=== PATIENT | male | born 1965 | race Caucasian/White ===

== ENCOUNTER 2019-01-13 11:12 | Emergency (ER) | payer OTHER ==
[~2019-01-13] VITALS: Ht 172.7 cm; Wt 108.9 kg
[~2019-01-13 11:12] MED LIST: LEVAQUIN 500 M500 M2 PO; MEDROL DOSPAK21 TA1 PO; TESSALON PERLE100 MG PO; VENTOLIN HFA 1818 GM INH
[2019-01-13 13:31] LABS: ABSOLUTE NEUTROPHILS 5.4 thou/uL (1.4-8.2); BASOPHILS 0.3 % (0.0-2.0); EOSINOPHILS 2.4 % (0.0-3.0); HEMATOCRIT 47.8 % (42.0-52.0); HEMOGLOBIN 16.6 gm/dL (14.0-18.0); LYMPHOCYTES 16.8 % (24.0-44.0); MCHC 34.6 g/dL (28.0-37.0); MCV 98.4 fL (80.0-100.0); PLATELET COUNT 227 thou/uL (150-400); POLYS 72.5 % (36.0-66.0); RBC 4.86 mil/uL (4.50-6.00); RDW 13.1 % (10.5-14.5); WBC 7.5 thou/uL (4.0-11.0)
[2019-01-13 13:40] LABS: CALCIUM 9.1 mg/dL (8.5-10.1); CREATININE 0.9 mg/dL (0.7-1.3); POTASSIUM 4.4 mmol/L (3.5-5.1)
[2019-01-13 13:44] LABS: ALBUMIN 3.7 g/dL (3.4-5.0); TOTAL BILIRUBIN 0.4 mg/dL (<0.1-1.0); TOTAL PROTEIN 7.2 g/dL (6.4-8.2)
[2019-01-13 15:14] LABS: URINE BILIRUBIN NEGATIVE (Negative); URINE BLOOD NEGATIVE (Negative); URINE CLARITY CLEAR; URINE COLOR YELLOW; URINE GLUCOSE-RANDOM* NEGATIVE (Negative); URINE KETONES NEGATIVE (Negative); URINE LEUKOCYTES-REFLEX NEGATIVE (Negative); URINE NITRITE-REFLEX NEGATIVE (Negative); URINE PROTEIN (DIPSTICK) NEGATIVE (Negative); URINE SPECIFIC GRAVITY <= 1.005 (1.005-1.035); URINE UROBILINOGEN 0.2 E.U./dl (0.2-1.0)
[2019-01-13] MEDS ORDERED: ZANTAC 150MG T150 MG PO (15:20)
[2019-01-13] MEDS ORDERED: MOBIC7.5 MG PO (15:20)
[2019-01-13 15:26] VITALS: BP 121/79
== END 2019-01-13 15:34 | disposition home or self-care (01) ==
LOC: ER 11:12
PROVIDERS: Nurse Practitioner Family
DX: R10.11 Right upper quadrant pain (principal); K76.0 Fatty (change of) liver, not elsewhere classified; Z87.891 Personal history of nicotine dependence; Z88.8 Allergy status to other drugs, medicaments and biological substances

== ENCOUNTER 2019-01-17 23:10 | Emergency (ER) | payer OTHER ==
[~2019-01-17] VITALS: Ht 172.7 cm; Wt 108.9 kg
[~2019-01-17 23:10] MED LIST changes: +MOBIC7.5 MG PO; +ZANTAC 150MG T150 MG PO
[2019-01-17] MEDS ORDERED: DOXYCYCLINE 10100 MG PO (23:34)
[2019-01-17] MEDS ORDERED: FAMCYCLOVIR 50500 M1 PO (23:35)
[2019-01-18 00:37] VITALS: BP 120/79
== END 2019-01-18 00:43 | disposition home or self-care (01) ==
LOC: ER 23:10
DX: B02.22 Postherpetic trigeminal neuralgia (principal); K76.0 Fatty (change of) liver, not elsewhere classified; Z87.891 Personal history of nicotine dependence; Z88.8 Allergy status to other drugs, medicaments and biological substances

== ENCOUNTER 2019-10-24 23:32 | Emergency (ER) | payer OTHER ==
[~2019-10-24] VITALS: Ht 172.7 cm; Wt 104.3 kg
[~2019-10-24 23:32] MED LIST changes: +DOXYCYCLINE 10100 MG PO; +FAMCYCLOVIR 50500 M1 PO
[2019-10-25 00:13] LABS: HEMATOCRIT 49.9 % (42.0-52.0); MCH 33.9 pg (26.0-34.0); MCHC 34.1 g/dL (28.0-37.0); MCV 99.4 fL (80.0-100.0); PLATELET COUNT 229 thou/uL (150-400); RBC 5.02 mil/uL (4.50-6.00); RDW 13.1 % (10.5-14.5); WBC 5.9 thou/uL (4.0-11.0)
[2019-10-25 00:15] LABS: ANION GAP 9 mmol/L (7-16); BUN 19 mg/dL (7-18); CHLORIDE 103 mmol/L (98-107); CO2 28 mmol/L (21-32); CREATININE 1.1 mg/dL (0.7-1.3); GLUCOSE 103 mg/dL (74-106); SODIUM 140 mmol/L (136-145)
[2019-10-25 00:25] LABS: ALBUMIN 3.8 g/dL (3.4-5.0); SGOT 16 U/L (15-37); SGPT 38 U/L (30-65); TOTAL BILIRUBIN 0.4 mg/dL (<0.1-1.0); TOTAL PROTEIN 7.7 g/dL (6.4-8.2); TROPONIN-I <0.06 ng/mL (<0.06)
[2019-10-25 01:01] LABS: PLATELET ESTIMATE NORMAL
[2019-10-25] MEDS ORDERED: TESSALON PERLE100 MG PO (01:01)
[2019-10-25] MEDS ORDERED: PROAIR HFA8.5 GM INH (01:01)
[2019-10-25 01:20] VITALS: BP 120/73
--- NOTE | 2019-10-28 12:55 | EKG ---
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
== END 2019-10-25 01:20 | disposition home or self-care (01) ==
LOC: ER 23:32
PROVIDERS: Emergency Medicine
DX: R05 Cough (principal); Z88.8 Allergy status to other drugs, medicaments and biological substances; Z87.891 Personal history of nicotine dependence

== ENCOUNTER 2020-07-11 11:00 | Emergency (ER) | payer OTHER ==
[~2020-07-11] VITALS: Ht 172.7 cm; Wt 104.3 kg
[~2020-07-11 11:00] MED LIST changes: +PROAIR HFA8.5 GM INH
[2020-07-11 12:34] LABS: URINE BILIRUBIN 2+ (Negative); URINE BLOOD TRACE (Negative); URINE CLARITY CLEAR; URINE GLUCOSE-RANDOM* TRACE (Negative); URINE KETONES NEGATIVE (Negative); URINE LEUKOCYTES-REFLEX NEGATIVE (Negative); URINE NITRITE-REFLEX NEGATIVE (Negative); URINE PROTEIN (DIPSTICK) 1+ (Negative); URINE SPECIFIC GRAVITY >= 1.030 (1.005-1.035); URINE UROBILINOGEN >= 8.0 E.U./dl (0.2-1.0)
[2020-07-11 12:38] LABS: ICTOTEST (BILI CONFIRMATORY) Positive (Negative); URINE COLOR AMBER
[2020-07-11 13:20] LABS: CASTS None Seen /LPF (None Seen); MUCUS >6 Heavy strn/LPF (None Seen); SQUAMOUS 0-3 Few /LPF (0-3)
[2020-07-11 13:21] LABS: BACTERIA-REFLEX None Seen /HPF (None Seen); CRYSTALS None Seen /LPF (None Seen); URINE RBC None Seen /HPF (0-2); URINE WBC-REFLEX 0-5 Rare /HPF (0-5)
[2020-07-11 14:07] VITALS: BP 123/81
== END 2020-07-11 14:07 | disposition home or self-care (01) ==
LOC: ER 11:00
PROVIDERS: Emergency Medicine
DX: B34.9 Viral infection, unspecified (principal); Z20.828 Contact with and (suspected) exposure to other viral communicable diseases; R82.2 Biliuria; I50.9 Heart failure, unspecified; Z79.899 Other long term (current) drug therapy; Z79.2 Long term (current) use of antibiotics; Z88.8 Allergy status to other drugs, medicaments and biological substances; Z87.891 Personal history of nicotine dependence

== ENCOUNTER 2020-07-14 10:57 | Emergency (ER) | payer OTHER ==
[~2020-07-14] VITALS: Ht 172.7 cm; Wt 104.3 kg
[2020-07-14 11:31] LABS: URINE BILIRUBIN 2+ (Negative); URINE BLOOD 1+ (Negative); URINE CLARITY CLEAR; URINE COLOR YELLOW; URINE GLUCOSE-RANDOM* TRACE (Negative); URINE KETONES NEGATIVE (Negative); URINE LEUKOCYTES-REFLEX NEGATIVE (Negative); URINE NITRITE-REFLEX NEGATIVE (Negative); URINE PROTEIN (DIPSTICK) TRACE (Negative); URINE SPECIFIC GRAVITY >= 1.030 (1.005-1.035)
[2020-07-14 11:33] LABS: ICTOTEST (BILI CONFIRMATORY) Positive (Negative)
[2020-07-14 11:49] LABS: BACTERIA-REFLEX 1-9 Few /HPF (None Seen); CASTS None Seen /LPF (None Seen); CRYSTALS None Seen /LPF (None Seen); SQUAMOUS None Seen /LPF (0-3); URINE RBC 0-2 Rare /HPF (0-2); URINE WBC-REFLEX None Seen /HPF (0-5)
[2020-07-14 12:24] LABS: HEMATOCRIT 50.7 % (42.0-52.0); HEMOGLOBIN 17.1 gm/dL (14.0-18.0); MCH 33.4 pg (26.0-34.0); MCHC 33.6 g/dL (28.0-37.0); MCV 99.1 fL (80.0-100.0); PLATELET COUNT 187 thou/uL (150-400); RBC 5.12 mil/uL (4.50-6.00); RDW 14.3 % (10.5-14.5); WBC 7.4 thou/uL (4.0-11.0)
[2020-07-14 12:36] LABS: CALCIUM 8.7 mg/dL (8.5-10.1); CREATININE 0.9 mg/dL (0.7-1.3); POTASSIUM 4.1 mmol/L (3.5-5.1)
[2020-07-14 12:41] LABS: ALBUMIN 3.2 g/dL (3.4-5.0); TOTAL BILIRUBIN 1.9 mg/dL (0.2-1.0); TOTAL PROTEIN 7.9 g/dL (6.4-8.2)
[2020-07-14 12:47] LABS: APTT 29.4 Seconds (24.5-32.8); PROTIME 10.6 Seconds (9.3-11.4)
[2020-07-14 13:18] LABS: ABSOLUTE NEUTROPHILS 1.7 thou/uL (1.4-8.2)
[2020-07-14 13:19] LABS: PLATELET ESTIMATE NORMAL
[2020-07-14 14:22] VITALS: BP 112/68
== END 2020-07-14 14:22 | disposition home or self-care (01) ==
LOC: ER 10:57
PROVIDERS: Emergency Medicine; Physician Assistant
DX: K76.0 Fatty (change of) liver, not elsewhere classified (principal); R10.84 Generalized abdominal pain; R74.8 Abnormal levels of other serum enzymes; I50.9 Heart failure, unspecified; Z79.899 Other long term (current) drug therapy; Z87.891 Personal history of nicotine dependence; Z88.8 Allergy status to other drugs, medicaments and biological substances

== ENCOUNTER 2020-08-17 20:44 | Emergency (ER) | payer OTHER ==
[~2020-08-17] VITALS: Ht 172.7 cm; Wt 104.3 kg
[2020-08-17 21:03] LABS: URINE BILIRUBIN NEGATIVE (Negative); URINE BLOOD TRACE (Negative); URINE CLARITY CLEAR; URINE COLOR YELLOW; URINE GLUCOSE-RANDOM* NEGATIVE (Negative); URINE KETONES NEGATIVE (Negative); URINE LEUKOCYTES-REFLEX NEGATIVE (Negative); URINE NITRITE-REFLEX NEGATIVE (Negative); URINE PROTEIN (DIPSTICK) NEGATIVE (Negative); URINE SPECIFIC GRAVITY 1.025 (1.005-1.035); URINE UROBILINOGEN 0.2 E.U./dl (0.2-1.0)
[2020-08-17 21:16] LABS: ABSOLUTE NEUTROPHILS 4.5 thou/uL (1.4-8.2); BASOPHILS 0.4 % (0.0-2.0); EOSINOPHILS 2.6 % (0.0-3.0); HEMATOCRIT 48.7 % (42.0-52.0); HEMOGLOBIN 16.4 gm/dL (14.0-18.0); LYMPHOCYTES 26.1 % (24.0-44.0); MCH 32.8 pg (26.0-34.0); MCHC 33.6 g/dL (28.0-37.0); MCV 97.5 fL (80.0-100.0); MONOCYTES 9.9 % (1.0-8.0); PLATELET COUNT 243 thou/uL (150-400); RDW 13.5 % (10.5-14.5); WBC 7.4 thou/uL (4.0-11.0)
[2020-08-17 21:29] LABS: CALCIUM 9.7 mg/dL (8.5-10.1); CREATININE 1.2 mg/dL (0.7-1.3); POTASSIUM 4.6 mmol/L (3.5-5.1)
[2020-08-17 21:35] LABS: ALBUMIN 4.5 g/dL (3.4-5.0); TOTAL BILIRUBIN 0.6 mg/dL (0.2-1.0); TOTAL PROTEIN 8.7 g/dL (6.4-8.2)
[2020-08-18 00:33] VITALS: BP 108/70
== END 2020-08-18 00:38 | disposition home or self-care (01) ==
LOC: ER 20:44
PROVIDERS: Emergency Medicine
DX: R10.9 Unspecified abdominal pain (principal); I50.9 Heart failure, unspecified; F17.210 Nicotine dependence, cigarettes, uncomplicated; Z79.899 Other long term (current) drug therapy; Z88.8 Allergy status to other drugs, medicaments and biological substances